=== PATIENT | male | born 1940 | race Caucasian/White ===

== ENCOUNTER 2018-04-20 09:17 | Emergency (ER) | payer OTHER ==
[~2018-04-20] VITALS: Ht 185.4 cm; Wt 93.0 kg
--- NOTE | 2018-04-20 10:13 | Diagnostic Imaging Report ---
PROCEDURE:X-RAY RIGHT ELBOW, COMPLETE COMPARISON:None. INDICATIONS:RIGHT ELBOW PAIN FROM FALL FINDINGS: The bones are mildly osteopenic. No acute, displaced fracture or dislocation. No elbow joint effusion. Soft tissues are unremarkable. CONCLUSION: No acute osseous abnormalities. Dictated by: Fan Spangler M.D. on 04/20/2018 at 10:23 Electronically approved by: Fan Spangler M.D. on 04/20/2018 at 10:23
--- NOTE | 2018-04-20 10:19 | Diagnostic Imaging Report ---
PROCEDURE:X-RAY UNILATERAL RIBS WITH CHEST X-RAY COMPARISON:None. INDICATIONS:RIGHT ANTERIOR RIB PAIN FROM FALL FINDINGS: The lungs are well-inflated. No focal airspace consolidation, pleural effusion, or pneumothorax. Cardiomediastinal contour is notable for tortuosity and atherosclerotic calcification of the thoracic aorta. Normal heart size without overt pulmonary edema. There are age-indeterminate fractures of the right anterior fifth and sixth ribs. Regional skeletal structures are otherwise intact. CONCLUSION: Age-indeterminate, though likely acute-subacute fractures of the anterior right fifth and sixth ribs. Correlate for point tenderness. No pneumothorax. Dictated by: Fan Spangler M.D. on 04/20/2018 at 10:29 Electronically approved by: Fan Spangler M.D. on 04/20/2018 at 10:29
== END 2018-04-20 11:38 | disposition home or self-care (01) ==
LOC: ER 09:17
DX: S22.41XA Multiple fractures of ribs, right side, initial encounter for closed fracture (principal); R07.89 Other chest pain; S51.011A Laceration without foreign body of right elbow, initial encounter; W01.0XXA Fall on same level from slipping, tripping and stumbling without subsequent striking against object, initial encounter; Y93.01 Activity, walking, marching and hiking; Y92.008 Other place in unspecified non-institutional (private) residence as the place of occurrence of the external cause; I10 Essential (primary) hypertension; Z86.73 Personal history of transient ischemic attack (TIA), and cerebral infarction without residual deficits
CPT/HCPCS: 71101; 99283

== ENCOUNTER → 2020-08-14 | Outpatient (CLI) | payer MEDICARE ==
[~2020-08-14] MED LIST: REGADENOSON 0.4 MG/5 ML SYR IV ONE
== END ==
LOC: NM 09:02
PROVIDERS: ATTEND Internal Medicine Interventional Cardiology
DX: I20.8 Other forms of angina pectoris (principal); R06.02 Shortness of breath
CPT/HCPCS: 78452; 93017; A9502; J2785

== ENCOUNTER → 2020-11-06 | Day surgery (SDC) | payer MEDICARE ==
[2020-11-01 10:03] LABS: BASOPHILS # (AUTO) 0.1 (0.0-0.1); BASOPHILS % 0.9 % (0.0-1.0); EOSINOPHILS # (AUTO) 0.3 (0.0-0.4); EOSINOPHILS % 3.4 % (0.0-6.0); HEMATOCRIT 41.7 % (38.2-49.6); HEMOGLOBIN 14.1 g/dL (14.0-18.0); LYMPHOCYTES # (AUTO) 1.4 (1.0-3.2); MEAN CORPUSCULAR HGB CONC 33.8 g/dL (31-35); MEAN CORPUSCULAR VOLUME 85.8 fL (81-99); MONOCYTES # (AUTO) 0.7 (0.2-0.8); MONOCYTES % 8.4 % (4.4-11.3); NEUTROPHILS # (AUTO) 5.6 (2.1-6.9); PLATELET COUNT 207 x10e3/uL (140-360); RED BLOOD COUNT 4.86 x10e6/uL (4.3-5.7); RED CELL DISTRIBUTION WIDTH 16.9 % (11.7-14.4)
[2020-11-01 10:26] LABS: ALBUMIN/GLOBULIN RATIO 1.2 (0.8-2.0); ANION GAP 14.9 mmol/L (8-16); CALCIUM 8.9 mg/dL (8.4-10.2); CREATININE, SERUM 1.37 mg/dL (0.72-1.25); POTASSIUM 3.9 mmol/L (3.5-5.1)
[2020-11-01 10:31] LABS: INR 1.25; PROTHROMBIN TIME 16.4 seconds (11.9-14.5)
[~2020-11-06] VITALS: Ht 185.4 cm; Wt 102.1 kg
[~2020-11-06] MED LIST changes: +ALPRAZOLAM 0.5 MG TAB ONE; +AMLODIPINE BESY10 MG PO; +ATORVASTATIN CA20 MG PO; +DIPHENHYDRAMINE HCL 25 MG CAP ONE; +ELIQUIS5 MG PO; +FENTANYL CITRATE/PF 100MCG/2 ML INJ ONE; +FUROSEMIDE40 MG PO; +GLIPIZIDE5 MG PO; +HEPARIN SOD (PORCINE) 1000 UNIT/ML 30ML ONE; +HEPARIN SOD/SOD CHLORIDE 2,000 ML ONE; +IOPAMIDOL 370 MG/ML 200 ML INFUS..BTL INJ ONE; +LIDOCAINE HCL 2% LOCAL 20 ML VIAL ONE; +LISINOPRIL10 MG PO; +METOPROLOL SUCC25 MG PO; +MIDAZOLAM HCL 2 MG/2 ML VIAL ONE; +NITROGLYCERIN/D5W 200 MCG/ML 250 ML ONE; -REGADENOSON 0.4 MG/5 ML SYR IV ONE; +SODIUM CHLORIDE 0.9% 1000ML 1,000 ML ONE; +VERAPAMIL HCL 2.5 MG/ML 2 ML VIAL ONE
[2020-11-06 11:35] VITALS: BP 134/72
[2020-11-06 14:03] VITALS: BP 159/77
[2020-11-06 14:15] VITALS: BP 155/77
[2020-11-06 14:30] VITALS: BP 140/61
[2020-11-06 14:45] VITALS: BP 140/61
[2020-11-06 15:00] VITALS: BP 150/77
== END | disposition home or self-care (01) ==
LOC: CATH LAB 11:12
PROVIDERS: ATTEND Internal Medicine Interventional Cardiology
DX: I25.119 Atherosclerotic heart disease of native coronary artery with unspecified angina pectoris (principal); R94.39 Abnormal result of other cardiovascular function study; I50.9 Heart failure, unspecified; I48.91 Unspecified atrial fibrillation; Z79.02 Long term (current) use of antithrombotics/antiplatelets; Z79.84 Long term (current) use of oral hypoglycemic drugs
CPT/HCPCS: 36415; 76937; 80053; 83880; 85025; 85610; 93458; C1769; C1887 ×2; J1644; J2001; J2250; J3010; J7030; Q9967; 99152; 99153

== ENCOUNTER → 2021-01-16 | Day surgery (SDC) | payer MEDICARE ==
[2021-01-11 09:38] LABS: BASOPHILS # (AUTO) 0.1 (0.0-0.1); BASOPHILS % 0.9 % (0.0-1.0); EOSINOPHILS # (AUTO) 0.4 (0.0-0.4); EOSINOPHILS % 5.5 % (0.0-6.0); HEMATOCRIT 42.9 % (38.2-49.6); HEMOGLOBIN 13.7 g/dL (14.0-18.0); LYMPHOCYTES % 12.7 % (18.0-39.1); MEAN CORPUSCULAR HGB CONC 31.9 g/dL (31-35); MEAN CORPUSCULAR VOLUME 84.6 fL (81-99); MONOCYTES # (AUTO) 0.6 (0.2-0.8); MONOCYTES % 8.3 % (4.4-11.3); NEUTROPHILS # (AUTO) 5.5 (2.1-6.9); NEUTROPHILS % 72.2 % (38.7-80.0); PLATELET COUNT 240 x10e3/uL (140-360); RED BLOOD COUNT 5.07 x10e6/uL (4.3-5.7); RED CELL DISTRIBUTION WIDTH 14.3 % (11.7-14.4)
[2021-01-11 09:57] LABS: ANION GAP 17.1 mmol/L (8-16); CALCIUM 8.7 mg/dL (8.4-10.2); CREATININE, SERUM 1.37 mg/dL (0.72-1.25); POTASSIUM 4.1 mmol/L (3.5-5.1)
[2021-01-11 10:37] LABS: INR 1.19; PROTHROMBIN TIME 15.4 seconds (11.9-14.5)
[2021-01-16] VITALS (7 sets, daily range): BP systolic 129–168; BP diastolic 70–79
[~2021-01-16] VITALS: Ht 188 cm; Wt 97.5 kg
[~2021-01-16] MED LIST changes: -ALPRAZOLAM 0.5 MG TAB ONE; -DIPHENHYDRAMINE HCL 25 MG CAP ONE; +GENTAMICIN SULFATE 40 MG/ML 2 ML VIAL ONE; -HEPARIN SOD (PORCINE) 1000 UNIT/ML 30ML ONE; -HEPARIN SOD/SOD CHLORIDE 2,000 ML ONE; -IOPAMIDOL 370 MG/ML 200 ML INFUS..BTL INJ ONE; -NITROGLYCERIN/D5W 200 MCG/ML 250 ML ONE; -SODIUM CHLORIDE 0.9% 1000ML 1,000 ML ONE; +SODIUM CHLORIDE 0.9% 1000ML 2,000 ML ONE; +SODIUM CHLORIDE 0.9% 250ML 250 ML ONE; +SODIUM CHLORIDE 0.9% 500ML 500 ML ONE; -VERAPAMIL HCL 2.5 MG/ML 2 ML VIAL ONE; +Vancomycin IV 1 GM VIAL ONE
== END | disposition home or self-care (01) ==
LOC: CATH LAB 06:15
PROVIDERS: ATTEND Internal Medicine
DX: I42.8 Other cardiomyopathies (principal); I48.19 Other persistent atrial fibrillation; I49.5 Sick sinus syndrome; I47.2 Ventricular tachycardia; I50.9 Heart failure, unspecified; Z01.812 Encounter for preprocedural laboratory examination; Z20.822 Contact with and (suspected) exposure to COVID-19; Z79.02 Long term (current) use of antithrombotics/antiplatelets; Z79.82 Long term (current) use of aspirin
CPT/HCPCS: 33249; 33286; 36415; 71045; 80048; 85025; 85610; C1722; C1777; C1898; J1580; J2001; J2250; J3010; J3370; J7030; J7040; J7050; U0002; 99152; 99153

== ENCOUNTER 2022-11-20 18:29 | Inpatient (IN) | payer MEDICARE ==
[~2022-11-20] VITALS: Ht 188 cm; Wt 102.2 kg
[~2022-11-20 18:29] MED LIST changes: -FENTANYL CITRATE/PF 100MCG/2 ML INJ ONE; -GENTAMICIN SULFATE 40 MG/ML 2 ML VIAL ONE; -LIDOCAINE HCL 2% LOCAL 20 ML VIAL ONE; -MIDAZOLAM HCL 2 MG/2 ML VIAL ONE; -SODIUM CHLORIDE 0.9% 1000ML 2,000 ML ONE; -SODIUM CHLORIDE 0.9% 250ML 250 ML ONE; -SODIUM CHLORIDE 0.9% 500ML 500 ML ONE; -Vancomycin IV 1 GM VIAL ONE
[2022-11-20 19:23] LABS: BASOPHILS # (AUTO) 0.1 (0.0-0.1); BASOPHILS % 0.8 % (0.0-1.0); EOSINOPHILS # (AUTO) 0.1 (0.0-0.4); EOSINOPHILS % 1.1 % (0.0-6.0); HEMATOCRIT 37.4 % (38.2-49.6); HEMOGLOBIN 11.6 g/dL (14.0-18.0); LYMPHOCYTES # (AUTO) 0.8 (1.0-3.2); LYMPHOCYTES % 12.5 % (18.0-39.1); MEAN CORPUSCULAR HEMOGLOBIN 26.1 pg (28-32); MEAN CORPUSCULAR VOLUME 84.2 fL (81-99); MONOCYTES # (AUTO) 0.8 (0.2-0.8); MONOCYTES % 12.2 % (4.4-11.3); NEUTROPHILS # (AUTO) 4.7 (2.1-6.9); NEUTROPHILS % 73.1 % (38.7-80.0); PLATELET COUNT 285 x10e3/uL (140-360); RED BLOOD COUNT 4.44 x10e6/uL (4.3-5.7); RED CELL DISTRIBUTION WIDTH 16.3 % (11.7-14.4)
[2022-11-20 19:43] LABS: ALBUMIN 3.7 g/dL (3.5-5.0); ANION GAP 17.5 mmol/L (8-16); CREATININE, SERUM 2.74 mg/dL (0.72-1.25); POTASSIUM 4.5 mmol/L (3.5-5.1)
[2022-11-20] MEDS ORDERED: DEXTROSE 50% SYRINGE 50 ML IV STA (19:46)
[2022-11-20] MEDS ORDERED: ALBUTEROL/IPRATROPIUM 3 ML NEB NEB STA (22:26)
[2022-11-20] MEDS ORDERED: ENOXAPARIN SODIUM INJ 100 MG/ML SYR SC STA (22:27)
[2022-11-20 22:38] VITALS: PULSE 50; RESP 18; O2SAT 93
[2022-11-21] VITALS (10 sets, daily range): BP systolic 103–137; BP diastolic 64–78; PULSE 50–54; RESP 18–21; TEMP 97.6–98.8; O2SAT 93–100
[2022-11-21 06:50] LABS: BASOPHILS # (AUTO) 0.1 (0.0-0.1); BASOPHILS % 0.8 % (0.0-1.0); EOSINOPHILS # (AUTO) 0.1 (0.0-0.4); EOSINOPHILS % 1.8 % (0.0-6.0); HEMATOCRIT 31.8 % (38.2-49.6); LYMPHOCYTES % 14.7 % (18.0-39.1); MEAN CORPUSCULAR HEMOGLOBIN 26.5 pg (28-32); MEAN CORPUSCULAR HGB CONC 31.4 g/dL (31-35); MEAN CORPUSCULAR VOLUME 84.1 fL (81-99); MONOCYTES # (AUTO) 0.9 (0.2-0.8); MONOCYTES % 13.1 % (4.4-11.3); NEUTROPHILS # (AUTO) 4.6 (2.1-6.9); NEUTROPHILS % 69.1 % (38.7-80.0); PLATELET COUNT 255 x10e3/uL (140-360); RED BLOOD COUNT 3.78 x10e6/uL (4.3-5.7); RED CELL DISTRIBUTION WIDTH 16.1 % (11.7-14.4)
[2022-11-21 07:11] LABS: ALBUMIN/GLOBULIN RATIO 1.1 (0.8-2.0); CALCIUM 8.3 mg/dL (8.4-10.2); CREATININE, SERUM 2.54 mg/dL (0.72-1.25)
[2022-11-21] MEDS ORDERED: ACETAMINOPHEN 325 MG TAB PO PRN (08:30)
[2022-11-21] MEDS ORDERED: SODIUM CHLORIDE 0.9% 250ML 250 ML ONE (09:03)
[2022-11-21] MEDS: SENNOSIDES 8.6 MG TAB PO SCH (09:30)
[2022-11-21] MEDS: DOCUSATE SODIUM 100 MG CAP PO SCH (09:30)
[2022-11-21] MEDS ORDERED: FLOMAX0.4 MG PO (09:45)
[2022-11-21] MEDS ORDERED: VITAMIN C1000 MG PO (09:45)
[2022-11-21] MEDS ORDERED: FINASTERIDE5 MG PO (09:45)
[2022-11-21] MEDS ORDERED: MULTI-VITAMIN1 EACH PO (09:45)
[2022-11-21] MEDS ORDERED: OMEGA-31000 MG PO (09:45)
[2022-11-21] MEDS ORDERED: AMIODARONE HCL200 MG PO (09:45)
[2022-11-21] MEDS ORDERED: vitamin d3 PO (09:45)
[2022-11-21] MEDS ORDERED: FUROSEMIDE INJ 10 MG/ML 4 ML VIAL IV ONE (12:45)
[2022-11-21] MEDS ORDERED: AMIODARONE HCL 200 MG TAB PO SCH (17:00)
[2022-11-21] MEDS ORDERED: DEXTROSE 50% SYRINGE 50 ML IV PRN (18:45)
[2022-11-21] MEDS: INSULIN REGULAR, HUMAN 100 UNIT/1 ML SQ SCH (20:54)
[2022-11-22] VITALS (9 sets, daily range): BP systolic 90–128; BP diastolic 52–65; PULSE 47–63; RESP 15–23; TEMP 97.5–98.7; O2SAT 92–98
[2022-11-22] MEDS: INSULIN REGULAR, HUMAN 100 UNIT/1 ML SQ SCH ×4 (07:30→20:50)
[2022-11-22 07:53] LABS: BASOPHILS % 0.6 % (0.0-1.0); EOSINOPHILS # (AUTO) 0.1 (0.0-0.4); EOSINOPHILS % 1.6 % (0.0-6.0); HEMOGLOBIN 10.2 g/dL (14.0-18.0); LYMPHOCYTES # (AUTO) 0.7 (1.0-3.2); LYMPHOCYTES % 10.2 % (18.0-39.1); MEAN CORPUSCULAR HEMOGLOBIN 26.2 pg (28-32); MEAN CORPUSCULAR HGB CONC 30.9 g/dL (31-35); MEAN CORPUSCULAR VOLUME 84.8 fL (81-99); MONOCYTES # (AUTO) 0.8 (0.2-0.8); MONOCYTES % 12.1 % (4.4-11.3); NEUTROPHILS # (AUTO) 4.8 (2.1-6.9); PLATELET COUNT 239 x10e3/uL (140-360); RED BLOOD COUNT 3.89 x10e6/uL (4.3-5.7); RED CELL DISTRIBUTION WIDTH 16.1 % (11.7-14.4)
[2022-11-22 08:13] LABS: ALBUMIN/GLOBULIN RATIO 1.1 (0.8-2.0); CALCIUM 8.4 mg/dL (8.4-10.2); CREATININE, SERUM 2.2 mg/dL (0.72-1.25); MAGNESIUM 2.1 MG/DL (1.3-2.1)
[2022-11-22 08:38] LABS: FERRITIN 135.81 ng/mL (21.81-274.66)
[2022-11-22] MEDS: SENNOSIDES 8.6 MG TAB PO SCH (09:27)
[2022-11-22] MEDS: DOCUSATE SODIUM 100 MG CAP PO SCH (09:27)
[2022-11-22] MEDS: ATORVASTATIN 40 MG TAB PO SCH (09:27)
[2022-11-22] MEDS: AMIODARONE HCL 200 MG TAB PO SCH (09:28)
[2022-11-22] MEDS: TAMSULOSIN HCL 0.4 MG CAP PO SCH (09:31)
[2022-11-22] MEDS ORDERED: HEPARIN SOD (PORCINE) 5,000 UNIT/ML VIAL IV ONE (11:30)
[2022-11-22] MEDS ORDERED: HEPARIN 25,000 UNIT/D5W 250ML 1,000 UNIT in DEXTROSE 5% 250ML 250 ML IV SCH ×3 (12:00→16:00)
[2022-11-22] MEDS ORDERED: FUROSEMIDE INJ 10 MG/ML 4 ML VIAL IV ONE (14:30)
[2022-11-22] MEDS ORDERED: POTASSIUM CHLORIDE 20 MEQ TAB CR PO ONE (14:30)
[2022-11-22 16:14] LABS: CLARITY,URINE HAZY (CLEAR); COLOR,URINE YELLOW (YELLOW); LEUKOCYTE ESTERASE ,URINE NEGATIVE (NEGATIVE); NITRITE,URINE NEGATIVE (NEGATIVE)
[2022-11-22 16:15] LABS: BACTERIA,URINE FEW /HPF; EPITHELIAL CELLS,URINE FEW /LPF; KETONES,URINE NEGATIVE (NEGATIVE); PROTEIN,URINE DIPSTICK NEGATIVE (NEGATIVE); RBC,URINE 0-5 /HPF (0-5); URINE UROBILINOGEN 1 mg/dL (0.2 - 1); WBC,URINE (MAN) 0-5 /HPF (0-5)
[2022-11-23] VITALS (12 sets, daily range): BP systolic 108–128; BP diastolic 56–64; PULSE 53–71; RESP 16–20; TEMP 97.7–98.6; O2SAT 91–99
[2022-11-23 05:38] LABS: BASOPHILS # (AUTO) 0.1 (0.0-0.1); BASOPHILS % 0.9 % (0.0-1.0); EOSINOPHILS # (AUTO) 0.1 (0.0-0.4); EOSINOPHILS % 1.6 % (0.0-6.0); HEMATOCRIT 33.8 % (38.2-49.6); HEMOGLOBIN 10.5 g/dL (14.0-18.0); LYMPHOCYTES # (AUTO) 0.7 (1.0-3.2); MEAN CORPUSCULAR HEMOGLOBIN 26.6 pg (28-32); MEAN CORPUSCULAR HGB CONC 31.1 g/dL (31-35); MEAN CORPUSCULAR VOLUME 85.6 fL (81-99); MONOCYTES # (AUTO) 0.7 (0.2-0.8); MONOCYTES % 11.8 % (4.4-11.3); NEUTROPHILS # (AUTO) 4.2 (2.1-6.9); NEUTROPHILS % 73.4 % (38.7-80.0); PLATELET COUNT 248 x10e3/uL (140-360); RED BLOOD COUNT 3.95 x10e6/uL (4.3-5.7); RED CELL DISTRIBUTION WIDTH 15.8 % (11.7-14.4)
[2022-11-23 05:52] LABS: ANION GAP 13.9 mmol/L (8-16); CALCIUM 8.6 mg/dL (8.4-10.2); CREATININE, SERUM 2.14 mg/dL (0.72-1.25); MAGNESIUM 2.1 MG/DL (1.3-2.1); POTASSIUM 3.9 mmol/L (3.5-5.1)
[2022-11-23] MEDS: INSULIN REGULAR, HUMAN 100 UNIT/1 ML SQ SCH ×4 (07:30→21:55)
[2022-11-23] MEDS: SENNOSIDES 8.6 MG TAB PO SCH (08:48)
[2022-11-23] MEDS: TAMSULOSIN HCL 0.4 MG CAP PO SCH (08:48)
[2022-11-23] MEDS: ATORVASTATIN 40 MG TAB PO SCH (08:49)
[2022-11-23] MEDS: AMIODARONE HCL 200 MG TAB PO SCH (08:49)
[2022-11-23] MEDS: DOCUSATE SODIUM 100 MG CAP PO SCH (08:50)
[2022-11-23] MEDS: FUROSEMIDE INJ 10 MG/ML 4 ML VIAL IV SCH (08:50)
[2022-11-23] MEDS: POTASSIUM CHLORIDE 20 MEQ TAB CR PO SCH (08:53)
[2022-11-24] VITALS (9 sets, daily range): BP systolic 100–131; BP diastolic 56–71; PULSE 52–60; RESP 18–19; TEMP 98.1–98.8; O2SAT 92–97
[2022-11-24] MEDS: HEPARIN IV SCH (03:25)
[2022-11-24] MEDS: [UNRECOGNIZED DRUG - OTHER] IV SCH (03:25)
[2022-11-24] MEDS: DEXTROSE 5% IV SCH (03:25)
[2022-11-24 06:30] LABS: CALCIUM 9.1 mg/dL (8.4-10.2); CREATININE, SERUM 1.94 mg/dL (0.72-1.25)
[2022-11-24] MEDS: INSULIN REGULAR, HUMAN 100 UNIT/1 ML SQ SCH ×4 (07:30→22:26)
[2022-11-24] MEDS: FUROSEMIDE INJ 10 MG/ML 4 ML VIAL IV SCH (09:06)
[2022-11-24] MEDS: POTASSIUM CHLORIDE 20 MEQ TAB CR PO SCH (09:07)
[2022-11-24] MEDS: ATORVASTATIN 40 MG TAB PO SCH (09:07)
[2022-11-24] MEDS: TAMSULOSIN HCL 0.4 MG CAP PO SCH (09:07)
[2022-11-24] MEDS: AMIODARONE HCL 200 MG TAB PO SCH (09:07)
[2022-11-24] MEDS: SENNOSIDES 8.6 MG TAB PO SCH (09:07)
[2022-11-24] MEDS: DOCUSATE SODIUM 100 MG CAP PO SCH (09:07)
[2022-11-25] VITALS (9 sets, daily range): BP systolic 117–129; BP diastolic 60–71; PULSE 52–77; RESP 18–20; TEMP 97.9–98.9; O2SAT 94–97
[2022-11-25 06:00] LABS: CALCIUM 9.2 mg/dL (8.4-10.2); CREATININE, SERUM 1.73 mg/dL (0.72-1.25)
[2022-11-25] MEDS: INSULIN REGULAR, HUMAN 100 UNIT/1 ML SQ SCH ×4 (07:30→23:12)
[2022-11-25] MEDS: AMIODARONE HCL 200 MG TAB PO SCH (08:45)
[2022-11-25] MEDS: ATORVASTATIN 40 MG TAB PO SCH (08:45)
[2022-11-25] MEDS: DOCUSATE SODIUM 100 MG CAP PO SCH (08:45)
[2022-11-25] MEDS: FUROSEMIDE 40 MG TAB PO SCH (08:45)
[2022-11-25] MEDS: SENNOSIDES 8.6 MG TAB PO SCH (08:45)
[2022-11-25] MEDS: POTASSIUM CHLORIDE 20 MEQ TAB CR PO SCH (08:46)
[2022-11-25] MEDS: TAMSULOSIN HCL 0.4 MG CAP PO SCH (08:46)
[2022-11-26] VITALS: BP 107/58; PULSE 65; RESP 18; TEMP 98; O2SAT 93
[2022-11-26 04:00] VITALS: BP 122/51; PULSE 62; RESP 18; TEMP 97.5; O2SAT 93
[2022-11-26 05:47] LABS: BASOPHILS % 0.6 % (0.0-1.0); EOSINOPHILS # (AUTO) 0.1 (0.0-0.4); EOSINOPHILS % 2.6 % (0.0-6.0); HEMATOCRIT 36.2 % (38.2-49.6); HEMOGLOBIN 10.9 g/dL (14.0-18.0); LYMPHOCYTES # (AUTO) 0.5 (1.0-3.2); LYMPHOCYTES % 9.6 % (18.0-39.1); MEAN CORPUSCULAR HEMOGLOBIN 26.4 pg (28-32); MEAN CORPUSCULAR HGB CONC 30.1 g/dL (31-35); MEAN CORPUSCULAR VOLUME 87.7 fL (81-99); MONOCYTES # (AUTO) 0.7 (0.2-0.8); MONOCYTES % 12.4 % (4.4-11.3); NEUTROPHILS # (AUTO) 3.9 (2.1-6.9); NEUTROPHILS % 73.7 % (38.7-80.0); PLATELET COUNT 248 x10e3/uL (140-360); RED BLOOD COUNT 4.13 x10e6/uL (4.3-5.7)
[2022-11-26 06:14] LABS: ANION GAP 14.3 mmol/L (8-16); CALCIUM 9.1 mg/dL (8.4-10.2); CREATININE, SERUM 1.82 mg/dL (0.72-1.25); POTASSIUM 4.3 mmol/L (3.5-5.1)
[2022-11-26 06:28] VITALS: PULSE 66; RESP 18; O2SAT 95
[2022-11-26] MEDS ORDERED: METOPROLOL SUCC25 MG PO (06:39)
[2022-11-26] MEDS ORDERED: FUROSEMIDE40 MG PO (06:39)
[2022-11-26] MEDS ORDERED: KLOR-CON M2020 MEQ PO (06:39)
[2022-11-26] MEDS ORDERED: ZITHROMAX500 MG PO (06:39)
[2022-11-26] MEDS: INSULIN REGULAR, HUMAN 100 UNIT/1 ML SQ SCH (07:30)
[2022-11-26 08:03] VITALS: BP 137/78; PULSE 68; RESP 18; TEMP 97.9; O2SAT 95
[2022-11-26 08:45] VITALS: BP 137/78; PULSE 68; RESP 18; TEMP 97.9; O2SAT 95
[2022-11-26] MEDS: TAMSULOSIN HCL 0.4 MG CAP PO SCH (08:58)
[2022-11-26] MEDS: AMIODARONE HCL 200 MG TAB PO SCH (08:59)
[2022-11-26] MEDS: DOCUSATE SODIUM 100 MG CAP PO SCH (08:59)
[2022-11-26] MEDS: ATORVASTATIN 40 MG TAB PO SCH (08:59)
[2022-11-26] MEDS: SENNOSIDES 8.6 MG TAB PO SCH (08:59)
[2022-11-26] MEDS: POTASSIUM CHLORIDE 20 MEQ TAB CR PO SCH (09:00)
[2022-11-26] MEDS: FUROSEMIDE 40 MG TAB PO SCH (09:02)
[2022-11-26] MEDS: [UNRECOGNIZED DRUG - OTHER] IV SCH (09:11)
[2022-11-26] MEDS: HEPARIN IV SCH (09:11)
[2022-11-26] MEDS: DEXTROSE 5% IV SCH (09:11)
== END 2022-11-26 12:44 | disposition home or self-care (01) | DRG 193 ==
LOC: ER 18:45 → ERHOLD 20:36 → MED/SURG2 11-21 03:44
PROVIDERS: ADMIT Internal Medicine; ATTEND Internal Medicine
DX: J18.9 Pneumonia, unspecified organism (principal); I50.23 Acute on chronic systolic (congestive) heart failure; J96.21 Acute and chronic respiratory failure with hypoxia; N17.9 Acute kidney failure, unspecified; I13.0 Hypertensive heart and chronic kidney disease with heart failure and stage 1 through stage 4 chronic kidney disease, or unspecified chronic kidney disease; N18.9 Chronic kidney disease, unspecified; G47.33 Obstructive sleep apnea (adult) (pediatric); D64.9 Anemia, unspecified; E11.9 Type 2 diabetes mellitus without complications; I48.0 Paroxysmal atrial fibrillation; I25.10 Atherosclerotic heart disease of native coronary artery without angina pectoris; E87.70 Fluid overload, unspecified; N40.0 Benign prostatic hyperplasia without lower urinary tract symptoms; E78.5 Hyperlipidemia, unspecified; Z79.01 Long term (current) use of anticoagulants; Z95.810 Presence of automatic (implantable) cardiac defibrillator; Z86.73 Personal history of transient ischemic attack (TIA), and cerebral infarction without residual deficits
CPT/HCPCS: 36415; 71045; 71046; 76770; 80048; 80053; 81001; 82550; 82607; 82728; 82948; 83540; 83690; 83735; 83880; 84466; 84484; 85025; 85379; 85730; 93005; 93306; 93970; 94660; 94799; 96372; 99284; J0696; J1644; J1650; J1940; J7050